=== PATIENT | female | born 1975 | race Caucasian/White ===

== ENCOUNTER 2017-07-17 01:02 | Emergency (ER) | payer BC ==
[~2017-07-17] VITALS: Ht 160 cm; Wt 55.3 kg
[2017-07-17] MEDS ORDERED: Ketorolac 30mg Inj IV ONE (01:15)
[2017-07-17] MEDS ORDERED: COLOCORT100 MG/60 RC (01:17)
[2017-07-17] MEDS ORDERED: CANASA1000 M1 RC (01:17)
--- NOTE | 2017-07-17 01:42 | Emergency Room Report ---
History of Present Illness General Chief Complaint: Chest Pain Source: Patient Present Illness HPI This is a 41-year-old female with recent diagnosis of bronchitis and a colonoscopy. She's taking doxycycline. She was seen at [facility] twice in this last week for facial swelling and neck pain. She had blood work done was unremarkable. CT of her facial bones were also unremarkable. She was diagnosed with possible cellulitis and placed on Keflex. She was doing better until tonight. She woke up with pain to the right facial area. Some swelling is over the left zygomatic arch. Also with neck pain and chest pressure. She called 911. They gave her aspirin and nitroglycerin and took her pressure from 5-3. No nausea no vomiting. Subjective fever. Allergies: Coded Allergies: AMPICILLIN (Verified Allergy, Unknown, 07/17/17) PENICILLINS (Verified Allergy, Unknown, 07/17/17) SULFA (SULFONAMIDE ANTIBIOTICS) (Verified Allergy, Unknown, 07/17/17) Patient History Past Medical History: see triage record, old chart reviewed Past Surgical History: other Pertinent Family History: none Social History: Denies: smoking Last Menstrual Period: 2 months ago Now: No Immunizations: other Reviewed Nursing Documentation: PMH: Agreed, PSxH: Agreed Nursing Documentation-PMH Hx Gastrointestinal Problems: Yes - PROCTITIS Review of Systems Constitutional: Reports: fever Eye: Denies: eye pain, blurred vision ENT: Denies: ear pain, nose congestion, throat swelling Respiratory: Denies: cough, shortness of breath Cardiovascular: Reports: chest pain, Denies: palpitations Gastrointestinal: Denies: abdominal pain, diarrhea, nausea, vomiting Musculoskeletal: Denies: back pain, joint pain Skin: Denies: rash Neurological: Denies: headache, numbness Endocrine: Denies: increased thirst, increased urine Hematologic/Lymphatic: Denies: easy bruising All Other Systems: negative except mentioned in HPI Physical Exam Vital Signs Date Time Temp Pulse Resp B/P (MAP) Pulse Ox O2 Delivery O2 Flow Rate FiO2 07/17/17 01:05 97.9 94 18 101/71 100 vitals normal Sp02 EP Interpretation: reviewed, normal General Appearance: well appearing, no apparent distress, alert Head: normocephalic, atraumatic Eyes: bilateral eye PERRL, bilateral eye EOMI ENT: hearing grossly normal, normal pharynx, other - Mild swelling to the pre- auricular lymph node on the left side. Tender to palpation. Neck: full range of motion, supple, no meningismus Respiratory: chest non-tender, lungs clear, normal breath sounds Cardiovascular #1: regular rate, rhythm, no murmur Gastrointestinal: normal bowel sounds, non tender, no mass, no organomegaly, no bruit, non-distended Musculoskeletal: back normal, gait/station normal, normal range of motion Neurologic: alert, oriented x3 Psychiatric: mood/affect normal Skin: warm/dry Medical Decision Making Diagnostic Impression: Primary Impression: Chest pain Qualified Codes: R07.9 - Chest pain, unspecified Additional Impression: Facial pain ER Course Patient with atypical chest pain. Also has generalized myalgia and facial pain. Toradol resolved her symptoms. I suspect that she has some type of inflammatory/autoimmune disease process going on. We'll discharge home. No evidence of ACS, PE, dissection to name a few. Because of her proctitis, advised patient to discuss with her colorectal surgeon to see if she has any inflammatory bowel disease. Lab Results Impression labs normal EKG Diagnostic Results Rate: normal Rhythm: NSR ST Segments: no acute changes Rhythm Strip Diag. Results Rhythm Strip Time: 01:41 EP Interpretation: yes Rate: 100 Rhythm: NSR, no PVC's, no ectopy Chest X-Ray Diagnostic Results Chest X-Ray Diagnostic Results : Chest X-Ray Ordered: Yes # of Views/Limited/Complete: 1 View Indication: Chest Pain EP Interpretation: Yes Interpretation: no consolidation, no effusion, no pneumothorax, no acute cardiopulmonary disease Impression: No acute disease Electronically Signed by: Electronically signed by Chago Martines MD Last Vital Signs Date Time Temp Pulse Resp B/P (MAP) Pulse Ox O2 Delivery O2 Flow Rate FiO2 07/17/17 01:05 97.9 94 18 101/71 100 Status: improved Disposition: HOME, SELF-CARE Condition: Stable Scripts Methylprednisolone (MEDROL) 4 Mg Tab.ds.pk 4 MG PO DAILY, #1 PACK Prov: CHAGO MARTINES M.D. 07/17/17 Meloxicam* (MOBIC*) 7.5 Mg Tablet 7.5 MG ORAL BID, #30 TAB 0 Refills Prov: CHAGO MARTINES M.D. 07/17/17 Referrals: NOT CHOSEN IPA/,REFERRING (PCP) Patient Instructions: Nonspecific Chest Pain Additional Instructions: Followup with your Dr. in 2-3 days. Return if symptom worsen. Discussed with your caloric a surgeon with a not inflammatory bowel disease was ruled out. CHAGO MARTINES M.D. Jul 17, 2017 01:42
[2017-07-17 01:50] LABS: BASOPHILS % (AUTO) 0.5 % (0.0-2.0); EOSINOPHILS % (AUTO) 0.4 % (0.0-3.0); LYMPHOCYTES % (AUTO) 6.5 % (20.0-45.0); MEAN CORPUSCULAR HEMOGLOBIN 30.7 PG (27.0-31.0); MEAN CORPUSCULAR HGB CONC 34.3 G/DL (32.0-36.0); MEAN CORPUSCULAR VOLUME 90 FL (80-99); MEAN PLATELET VOLUME 6.6 FL (6.5-10.1); MONOCYTES % (AUTO) 7.9 % (1.0-10.0); NEUTROPHILS % (AUTO) 84.7 % (45.0-75.0); PLATELET COUNT 291 K/UL (150-450); RED BLOOD COUNT 3.71 M/UL (4.20-5.40); RED CELL DISTRIBUTION WIDTH 11.2 % (11.6-14.8); WHITE BLOOD COUNT 12.6 K/UL (4.8-10.8)
[2017-07-17 02:00] VITALS: BP 103/72
[2017-07-17 02:20] LABS: ALANINE AMINOTRANSFERASE 7 U/L (3-33); ANION GAP 12 (5-15); ASPARTATE AMINO TRANSFERASE 9 U/L (5-40); CALCIUM 8.8 mg/dL (8.6-10.2); CARBON DIOXIDE 27 mEQ/L (20-30); CHLORIDE 99 mEQ/L (98-107); CREATININE 0.6 mg/dL (0.5-0.9); GLOMERULAR FILTRATION RATE > 60 mL/min (>60); HEMOLYSIS 2; POTASSIUM 3.3 mEQ/L (3.4-4.9); SODIUM 138 mEQ/L (135-145); TOTAL PROTEIN 6.7 g/dL (6.6-8.7)
[2017-07-17 02:26] LABS: TROPONIN I < 0.30 ng/mL (<=0.30)
[2017-07-17 02:33] LABS: CKMB < 1.5 ng/mL (< 3.8)
[2017-07-17] MEDS ORDERED: Acetaminophen 500mg (ES) tab ORAL ONE (02:45)
[2017-07-17] MEDS ORDERED: MOBIC7.5 MG ORAL (02:54)
[2017-07-17] MEDS ORDERED: MEDROL4 M1 PO (02:54)
[2017-07-17 03:00] VITALS: BP_SYST 101; BP_SYST 115; BP_DIAS 71; BP_DIAS 72
--- NOTE | 2017-07-17 10:45 | Diagnostic Imaging Report ---
Indication: Dyspnea Comparison: None A single view chest radiograph was obtained. Findings: Cardiomediastinal appearance is within normal limits for age. Pulmonary vascularity is appropriate. The diaphragmatic contour is smooth and costophrenic angles are sharp. No pleural effusions are identified. The bones are unremarkable. Impression: No acute findings
--- NOTE | 2017-08-04 14:02 | Cardiology Report ---
APPROVED REPORT EKG Measurement Heart [id number] Normal sinus rhythm Normal ECG
== END 2017-07-17 03:00 | disposition home or self-care (01) ==
LOC: EDBD 01:02 → EMR 01:27
DX: R07.89 Other chest pain (principal); R51 Headache; Z88.0 Allergy status to penicillin; Z88.2 Allergy status to sulfonamides; Z87.19 Personal history of other diseases of the digestive system
CPT/HCPCS: 36415; 71010; 80053; 82550; 82553; 84484; 85025; 93005; 96372; 99284; J1885